=== PATIENT | female | born 1960 | race Caucasian/White ===

== ENCOUNTER 2020-12-21 12:53 | Emergency (ER) | payer OTHER, SELFPAY ==
[2020-12-21 12:54] VITALS: BP 167/83; PULSE 93; RESP 22; TEMP 36.9; O2SAT 94; BMI 37.6
--- NOTE | 2020-12-21 13:09 | XR_ITS ---
PROCEDURE INFORMATION: Exam: XR Chest Exam date and time: 12/21/2020 1:09 PM Age: 60 years old Clinical indication: Patient HX: Covid +, dx of 12 days ago, can't eat, dyspnea; Additional info: Dyspnea, covid+, TECHNIQUE: Imaging protocol: XR of the chest. Views: 1 view. COMPARISON: No relevant prior studies available. FINDINGS: Lungs: Mild bilateral mid and lower lung zone streaky ground-glass opacities. Pleural spaces: Unremarkable. No pleural effusion. No pneumothorax. Heart/Mediastinum: Normal. Bones/joints: Multilevel thoracic spine degenerative disc space narrowing and osteophyte formation. IMPRESSION: Mild bilateral mid and lower lung zone streaky ground-glass opacities. Findings most compatible with multifocal pneumonia. Atypical viral pneumonia, such as COVID-19, could have this appearance.
--- NOTE | 2020-12-21 13:09 | [facility].EDSOB ---
ED Disposition Clinical Impression: Pneumonia due to COVID-19 virus Disposition: Home, Self-Care Condition on Discharge: Fair Additional Instructions: Please stay in close contact with your primary care physician. Return to the emergency department if you feel worse in any way. Today your oxygen level is high enough for you not to require admission to the hospital. However, if this worsens you may require admission to the hospital. Discussed with your primary care physician if you should get antibody infusions for COVID-19. Referrals: Provider,Referral, [Primary Care Provider] - 3 days - Critical Care Critical Care Time: No Attestation: On , the high probability of a clinically significant, sudden or life threatening deterioration of the following system(s) required my full and direct attention, intervention and personal management. The time I documented below is in addition to time spent performing reported procedures but includes the following listed in this critical care notation. Medical Decision Making - Medical Records Medical records reviewed: Yes: I reviewed the patient's medical records. - Toñito Inquiry Pt receiving controlled substance: No Vital Signs: 12/21/20 12:54 12/21/20 13:31 12/21/20 14:00 Temperature 98.4 F Temperature Source Oral Pulse Rate 83 83 Pulse Rate [Right Radial] 93 H Respiratory Rate 22 20 20 Blood Pressure 149/83 H 146/84 H Blood Pressure [Right Arm] 167/83 H Blood Pressure Mean 126 115 Blood Pressure Mean [Right Arm] 111 Blood Pressure Source [Right Arm] Automatic Cuff Blood Pressure Position [Right Arm] Sitting 02 Sat by Pulse Oximetry 94 L 96 94 L Oxygen Delivery Method Room Air Nasal Cannula Oxygen Flow Rate (LPM) 2 12/21/20 14:30 Temperature Temperature Source Pulse Rate 88 Pulse Rate [Right Radial] Respiratory Rate 20 Blood Pressure 169/91 H Blood Pressure [Right Arm] Blood Pressure Mean 114 Blood Pressure Mean [Right Arm] Blood Pressure Source [Right Arm] Blood Pressure Position [Right Arm] 02 Sat by Pulse Oximetry 94 L Oxygen Delivery Method Oxygen Flow Rate (LPM) - Radiology Data #1 Image(s): Chest Image Reviewed: Yes I reviewed the patient's radiology image, Yes I have reviewed radiologist's interpretation Preliminary Findings: Abnormal (Multifocal patchy infiltrates consistent with COVID-19 diagnosis.) - ECG Data Tracing #1 I reviewed this ECG and interpreted as documented below: He was performed at 1457. It shows a normal sinus rhythm with a rate of 89. There is no dysrhythmia and no evidence of ischemia. The axes are normal. Medical Decision Narrative: The patient presents to the emergency department complaining of shortness of breath and general malaise. She tested positive for COVID-19. The patient's oxygen saturations are 94% on room air. Her blood pressure is stable. Her heart rate is in the 90s. Patient's chest x-ray is consistent with COVID-19. The patient does not require supplemental oxygen at this time. I believe that at this time, the patient does not meet admission criteria for COVID-19. However, if the patient feels worse than today I told her to return to the emergency department for reevaluation. I also recommended that the patient stay in touch with her primary care physician. The patient has expressed understanding and has agreed to do so. Resp/SOB HPI - General Chief Complaint: Shortness of Breath/Dyspnea Stated Complaint: covid pos/worsening symptoms Time Seen by Provider: 12/21/20 13:10 Mode of Arrival: Ambulatory Limitations: No Limitations Description of Symptoms (Recalled from ER Triage Doc. by RN): Pt states that she tested positive for COVID 12 days ago. C/O worsening symptoms. Increased SOA, diarrhea, decreased appetite, weakness. - History of Present Illness MD Complaint: shortness of breath, cough Context: recent illness (COVID-19) - Related Data Home Medication
[2020-12-21 13:31] VITALS: BP 149/83; PULSE 83; RESP 20; O2SAT 96
[2020-12-21 14:00] VITALS: BP 146/84; PULSE 83; RESP 20; O2SAT 94
[2020-12-21 14:30] VITALS: BP 169/91; PULSE 88; RESP 20; O2SAT 94
[2020-12-21 15:04] VITALS: BP 123/74; PULSE 78; RESP 16; TEMP 36.6; O2SAT 92
== END 2020-12-21 15:07 | disposition home or self-care (01) ==
PROVIDERS: Emergency Provider Emergency Medicine
DX: U07.1 COVID-19 (principal); J12.82 Pneumonia due to coronavirus disease 2019; I10 Essential (primary) hypertension; E78.5 Hyperlipidemia, unspecified
CPT/HCPCS: 71045; 99283

== ENCOUNTER 2023-10-11 09:52 | Emergency (ER) | payer MEDICARE, SELFPAY ==
[2023-10-11 10:05] VITALS: BP 147/53; PULSE 72; RESP 18; TEMP 36.7; O2SAT 96; BMI 39.6
--- NOTE | 2023-10-11 10:25 | ED_ITS ---
Discharge Plan Disposition Patient Disposition: Home, Self-Care Condition: Good Prescriptions Prescriptions: New kejhspetvyfxeih-berclatzw-NL [Bromfed DM] 2-30-10 mg/5 mL syrup 10 ml PO Q6H PRN (Reason: cough/sinus symptoms) Qty: 200 0RF No Action atorvastatin 20 mg tablet 20 mg PO DAILY fluticasone propionate [Allergy Relief (fluticasone)] 50 mcg/actuation spray,suspension 1 spray INTRANASAL DAILY montelukast [Singulair] 10 mg tablet 10 mg PO QPM Qty: 30 0RF lisinopril 20 mg tablet 20 mg PO DAILY Patient Comments: TAKE 1 TABLET BY MOUTH ONCE DAILY bupropion HCl 300 mg tablet extended release 24 hr 300 mg PO DAILY Patient Comments: TAKE 1 TABLET BY MOUTH ONCE DAILY Referrals Follow up/Referrals: Sudhakar Alonso MD [Primary Care Provider] - See instructions Activity Restrictions/Add. Instructions Additional Instructions/Restrictions: Call back this evening for Respiratory Panel results. Increase fluids and rest. Follow up with PCP if symptoms persist or worsen. Clinical Impressions Clinical Impression: Acute upper respiratory infection Instructions Patient Instructions: DI for Viral Upper Respiratory Infection -- Adult Discharge ED Provider: Vanessa Durham [facility] [place] HPI General Stated complaint: chills, congested, body aches, short of air, fever Mode of Arrival: Ambulatory Source of Information: Patient Limitations: No Limitations Time Seen by Provider: 10/11/23 10:14 Description of Symptoms (Recalled from Triage Doc. by RN): Pt's symptoms are fever, chills, runny nose, head congestion, REYNOLDS, and dry cough. HEENT Symptoms (Recalled from RN notes): Yes Resp Symptoms (Recalled from RN notes): No Skin Symptoms (Recalled from RN notes): No MS Symptoms (Recalled from RN notes): No Functional Status (Recalled from RN notes): n/a History of Present Illness Provider Complaint: Pt reports that she started coughing 2 days ago and then yesterday she was having chills, body aches, fever, runny nose, congestion, headache and cough. She states that she has had Tylenol for her symptoms. Pt states that she has family that will be coming for a week and wants to make sure that she does not have anything contagious. Related Data Home Medications Medication Instructions Recorded Confirmed atorvastatin 20 mg tablet 20 mg PO DAILY 12/16/17 10/11/23 fluticasone propionate 50 1 spray intranasal DAILY 12/16/17 10/11/23 mcg/actuation nasal spray,suspension (Allergy Relief (fluticasone)) bupropion HCl 300 mg 24 hr tablet, 300 mg PO DAILY 10/11/23 10/11/23 extended release lisinopril 20 mg tablet 20 mg PO DAILY 10/11/23 10/11/23 Previous Rx's Medication Instructions Recorded montelukast 10 mg tablet 10 mg PO QPM #30 tabs 02/16/19 (Singulair) neoyjzzwgswrmbl-fjbvkutrkhqngcw-JC 10 ml PO Q6H PRN cough/sinus 10/11/23 2 mg-30 mg-10 mg/5 mL oral syrup symptoms #200 mL (Bromfed DM) Allergies Allergy/AdvReac Type Severity Reaction Status Date / Time No Known Allergies Allergy Verified 10/11/23 10:15 Worker's Comp Is this a Worker's Comp case?: No PFSH PFS Disclaimer: The information contained in this section may have been updated after the patient was seen, as this information can be updated by other users. Social History Smoking Status: Never smoker alcohol intake: never substance use type: denies use current occupational status: employed Travel in the last 8 weeks: Inside the [place] household members: family housing: house ROS Obtained: Yes All systems reviewed & no additional complaints except as documented Constitutional Constitutional: Reports fever(s), Reports headache(s) and Reports malaise Eyes Eyes: Reports system reviewed and no additional complaints, except as documented ENT Ears, Nose, Mouth, and Throat: Reports system reviewed and no additional complaints, except as documented, Reports headache(s), Reports nasal congestion and Reports nasal discharge Cardiovascular Cardiovascular: Reports system reviewed and no additional complaints, except as documented Respiratory Respiratory: Reports system reviewed and no additional complaints, except as documented and Reports cough Gastrointestinal Gastrointestingal: Reports system reviewed and no additional complaints, except as documented Genitourinary Female Genitourinary: Reports system reviewed and no additional complaints, except as documented Musculoskeletal Musculoskeletal: Reports system reviewed and no additional complaints, except as documented Integumentary/Breasts Skin/Breast: Reports system reviewed and no additional complaints, except as documented Neurologic Neurologic: Reports system reviewed and no additional complaints, except as documented and Reports headache(s) Endocrine Endocrine: Reports system reviewed and no additional complaints, except as documented Hematologic/Lymphatic Henatologic/Lymphatic: Reports system reviewed and no additional complaints, except as documented Allergic/Immunologic Allergic/Immunologic: Reports system reviewed and no additional complaints, except as documented Physical Exam General General appearance: alert Comment: ill appearing Head Head exam: atraumatic and normocephalic Eye Eye exam: Present normal appearance ENT ENT exam: Present mucous membranes moist Expanded ENT Exam External ear exam: Present normal external inspection Nose exam: Absent sinus tenderness Nasal speculum exam: Bilateral: other (edematous with clear drainage) Mouth exam: Present normal external inspection Teeth exam: Present normal inspection Throat exam: Present normal inspection Neck Neck exam: Present normal inspection Chest Chest inspection: Present normal inspection and symmetric chest wall rise Respiratory Respiratory exam: Present normal lung sounds bilaterally Cardiovascular Cardiovascular exam: Present regular rate, normal rhythm and normal heart sounds Abdominal Exam Abdominal exam: Present soft and normal bowel sounds Extremities Exam Extremities exam: Present normal inspection Back Exam Back exam: Present normal inspection Neurological Exam Neurological exam: Present alert and oriented X3 Psychiatric Psychiatric exam: Present normal affect and normal mood Skin Skin exam: Present warm, dry and intact Lymphatic Lymphatic Findings: no adenopathy Medical Decision Making Toñito Inquiry Pt receiving controlled substance: No Toñito was queried for this patient: No Vital Signs: 10/11/23 10:05 Temperature 98.0 F Temperature Source Oral Pulse Rate [Right Radial] 72 Respiratory Rate 18 Blood Pressure [Right Arm] 147/53 H Blood Pressure Mean [Right Arm] 84 Blood Pressure Source [Right Arm] Automatic Cuff Blood Pressure Position [Right Arm] Sitting 02 Sat by Pulse Oximetry 96 Oxygen Delivery Method Room Air
[2023-10-11 10:30] LABS: UTC Influenza A Antigen Negative (Negative); UTC Influenza B Antigen Negative (Negative)
[2023-10-11 10:37] VITALS: BP 147/53; PULSE 72; RESP 18; TEMP 36.7; O2SAT 96
[2023-10-11 10:40] VITALS: BP 147/53; PULSE 72; RESP 18; TEMP 36.7; O2SAT 96
[2023-10-11 10:42] LABS: Adenovirus,PCR Not Detected (NotDetected); Bordetella Pertussis Not Detected (NotDetected); Chlamydophila Pneumoniae, PCR Not Detected (NotDetected); Coronavirus 229E Not Detected (NotDetected); Coronavirus NL63 Not Detected (NotDetected); Coronavirus OC43 Not Detected (NotDetected); Coronovirus HKU1,PCR Not Detected (NotDetected); Human Metapneumovirus Not Detected (NotDetected); Influenza A, PCR Not Detected (NotDetected); Influenza AH1, 2009 Not Detected (NotDetected); Influenza AH1, PCR Not Detected (NotDetected); Influenza AH3,PCR Not Detected (NotDetected); Influenza B, PCR Not Detected (NotDetected); Mycoplasma Pneumoniae, PCR Not Detected (NotDetected); Parainfluenza 1, PCR Not Detected (NotDetected); Parainfluenza 2, PCR Not Detected (NotDetected); Parainfluenza 3, PCR Not Detected (NotDetected); Parainfluenza 4, PCR Not Detected (NotDetected); Respiratory Syncytial Virus Not Detected (NotDetected); Rhinovirus/Enterovirus Not Detected (NotDetected)
[2023-10-11 12:38] LABS: Coronavirus 19, PCR Detected (NotDetected)
== END 2023-10-11 10:38 | disposition home or self-care (01) ==
PROVIDERS: Emergency Provider Nurse Practitioner Family; PCP Internal Medicine
DX: U07.1 COVID-19 (principal); R50.9 Fever, unspecified; R51.9 Headache, unspecified; R05.9 Cough, unspecified; R09.81 Nasal congestion
CPT/HCPCS: 87581; 87632; 87635; 87798; 87804; 99204; 99212; G0463